=== PATIENT | female | born 1945 | race American Indian/Alaskan Native ===

== ENCOUNTER 2019-06-12 06:57 | Day surgery (SDC) | payer MEDICARE ==
[~2019-06-12 06:57] MED LIST: IOHEXOL 300 MG/ML 100ML IR ONE
[2019-06-12] MEDS ORDERED: ceFAZolin/STERILE WATER 2 GM/20 ML SYRINGE IV NR (07:11)
[2019-06-12] MEDS ORDERED: BACTERIOSTATIC SODIUM CHLORIDE 0.9% 30 ML VIAL INFILTRATI ONE (07:17)
--- NOTE | 2019-06-12 07:37 | Anesthesia Consultation ---
Anesthesia Consult and Med Hx Date of service: 06/12/19 - Airway Anesthetic Teeth Evaluation: Dentures (upper), Partials (lower) ROM Head & Neck: Adequate Mental/Hyoid Distance: Adequate Mallampati Class: Class II Intubation Access Assessment: Probably Good - Pre-Operative Health Status ASA Pre-Surgery Classification: ASA2 Proposed Anesthetic Plan: General - Pulmonary Hx Smoking: No COPD: No Hx Sleep Apnea: No (MOSHE PRE SCREEN HIGH RISK) - Cardiovascular System Hx Hypertension: Yes (X 15 YRS) Hx Coronary Artery Disease: No (high cholesterol) - Central Nervous System Hx Psychiatric Problems: No - Gastrointestinal Hx Gastroesophageal Reflux Disease: Yes - Endocrine Hx Renal Disease: Yes - Hematic Hx Anemia: Yes (NOT RECENT) - Other Systems Hx Cancer: No Hx Obesity: Yes (BMI 35.2)
--- NOTE | 2019-06-12 07:37 | Anesthesia Day of Surgery ---
Anesthesia Day of Surgery - Day of Surgery Patient Examined: Yes Patient H&P Reviewed: Yes Patient is NPO: Yes
[2019-06-12] MEDS ORDERED: LACTATED RINGERS 1,000 ML IV SCH (08:00)
[2019-06-12] MEDS ORDERED: fentaNYL 100 MCG/2 ML INJ IV PRN (08:00)
[2019-06-12] MEDS ORDERED: LIDOCAINE MPF (2%) 20 MG/1 ML VIAL 5 ML ONE (09:12)
[2019-06-12] MEDS ORDERED: fentaNYL 100 MCG/2 ML INJ ONE (09:12)
[2019-06-12] MEDS ORDERED: propofoL 200 MG/20 ML VIAL IV ONE (09:13)
[2019-06-12] MEDS ORDERED: ONDANSETRON 4 MG/2 ML INJ ONE (09:24)
[2019-06-12] MEDS ORDERED: dexAMETHasone 20 MG/5 ML VIAL ONE (09:24)
[2019-06-12] MEDS ORDERED: PHENYLEPHRINE/NS 1,000 MCG/10 ML SYRINGE (OR USE) IV ONE (09:33)
--- NOTE | 2019-06-12 09:55 | Short Stay Summary ---
Short Stay Documentation Date of service: 06/12/19 Narrative H&P: 73 yr old female with hematuria, bladder lesion, urinary incontinence CT negative - History Past Medical History: hypertension, hyperlipidemia Past Surgical History: cataract removal, hysterectomy Social history: no significant social history - Allergies and Medications Current Medications: Allergies No Known Allergies Allergy (Verified 02/12/15 12:21) Home Medications Medication Instructions Recorded Confirmed Last Taken Type Lisinopril/Hydrochlorothiazide 20 mg PO DAILY 11/13/13 06/08/19 09/23/16 History [Zestoretic 20-25 mg] AtorvaSTATin [Lipitor] 20 mg PO QHS 06/08/19 06/08/19 06/01/19 History amLODIPine [Norvasc] 5 mg PO DAILY 06/08/19 06/08/19 Unknown History Active Medications Cefazolin Sodium (Ancef/Sterile Water 2 Gm/20 Ml) 2 gm IV PREOP NR Stop: 06/12/19 16:00 Fentanyl (Sublimaze) 50 mcg IV Q5MIN PRN PRN Reason: Pain , Severe (7-10) Stop: 06/12/19 16:00 Lactated Ringer's (Lactated Ringers) 1,000 mls @ 100 mls/hr IV DIRECT DALLIN - Physical exam General appearance: no acute distress, well-nourished Integumentary: no rash, no growths HEENT: Atraumatic, PERRLA Lungs: Clear to auscultation, Normal air movement Heart: Regular rate, No murmurs Extremities: no ischemia, No edema Neurological: Normal gait - Brief post op/procedure progress note Date of procedure: 06/12/19 Pre-op diagnosis: hematuria, bladder lesion, urinary incontinence Post-op diagnosis: same Procedure: cysto, rpg, bladder bx & fulgeration Anesthesia: GETA Surgeon: MARCUS YEAGER Pathology: list (bladder lesion) Condition: stable - Hospital course Hospital course: cipro & ultram on chart - Disposition Condition at discharge: Stable Disposition: DC-01 TO HOME OR SELFCARE Short Stay Discharge Plan Follow up with: BHAVANI DAVILA MD [Primary Care Provider] - 7 Days
[2019-06-12] MEDS ORDERED: IOHEXOL 300 MG/ML 100ML IR ONE (10:00)
--- NOTE | 2019-06-12 10:22 | Fluoroscopy Report ---
5 fluoroscopic images submitted Indication: Intraoperative localization Impression: 5 images of the abdomen were submitted for documentation purposes with radiology involve ment. Bilateral retrograde pyelograms were performed with bladder biopsy. Please refer to the operat pj note for complete details. Approximately 50 mL of Omnipaque 300 was utilized. Fluoroscopic time: 0.2 minutes. Signer Name: Rene Ruvalcaba MD Signed: 06/12/2019 10:17 AM Workstation Name: [id number]
--- NOTE | 2019-06-12 10:31 | Operative Report ---
PREOPERATIVE DIAGNOSES: Bladder lesion and hematuria. POSTOPERATIVE DIAGNOSES: Bladder lesion and hematuria. PROCEDURE: Cystoscopy, bilateral retrograde pyelograms, biopsy of bladder lesion and fulguration. SURGEON: Saúl Willams MD ANESTHESIA: General. ESTIMATED BLOOD LOSS: Minimal. FLUIDS: Crystalloid. COMPLICATIONS: No complications. INDICATIONS: This 73-year-old female seen in the office by Dr. Pérez. She underwent workup for hematuria. CT of abdomen and pelvis was negative. On cystoscopy, she was found to have small lesion in the bladder. She presents now for intervention. She also gives note of urinary incontinence, but drinks and it is unclear how much caffeine she drinks, consumes a lot of herbal products. Initial recommendation was to reduce by 1/2. DESCRIPTION OF PROCEDURE: The patient was taken to the operative suite, placed in a supine position. After adequate general anesthesia, placed in a dorsal lithotomy position, prepped and draped in a sterile fashion. Pancystourethroscopy was performed with a 22-Faroese Storz cystoscope. Bladder had some erythema on the trigone. Both ureteral orifices in normal position. Some diffuse trabeculation. No tumors or stones were noted. Bilateral retrograde pyelograms were obtained with an 8-Faroese [place] catheter and 8 mL of contrast. No filling defects or obstruction. Cold cup biopsy forceps was used to biopsy the lesion in the trigone and fulguration. Adequate hemostasis was achieved. The patient tolerated the procedure well as bladder was emptied. She was extubated and taken to recovery room. She will go home on Cipro and Ultram. [facility]# [id number] [facility]
[2019-06-12 10:36] VITALS: BP 134/77
--- NOTE | 2019-06-12 11:33 | Post Anesthesia Evaluation ---
- Post Anesthesia Evaluation Patient Participated: Yes Airway Patent: Yes Stable Respiratory Function: Yes Nausea/Vomiting: No Temp > 96.8F: Yes Pain Manageable: Yes Adequeate Hydration: Yes Anesthesia Complications: No
== END 2019-06-12 11:10 | disposition home or self-care (01) ==
LOC: OR 06:57
PROVIDERS: ATTEND Urology
DX: N32.89 Other specified disorders of bladder (principal); R31.9 Hematuria, unspecified; I50.9 Heart failure, unspecified; I11.0 Hypertensive heart disease with heart failure; E78.00 Pure hypercholesterolemia, unspecified; E66.9 Obesity, unspecified; Z90.710 Acquired absence of both cervix and uterus; Z79.899 Other long term (current) drug therapy; Z98.41 Cataract extraction status, right eye; Z98.42 Cataract extraction status, left eye; Z98.890 Other specified postprocedural states; Z86.2 Personal history of diseases of the blood and blood-forming organs and certain disorders involving the immune mechanism
CPT/HCPCS: 36415; 52204; 74420; 84132; 88305; C1758; J0690; J1100; J2370; J2405; J2704; J3010; J7120; Q9967